=== PATIENT | female | born 1990 | race Caucasian/White ===

== ENCOUNTER 2017-02-20 01:52 | Inpatient (IN) | payer MEDICAID, OTHER ==
[~2017-02-20] VITALS: Ht 165.1 cm; Wt 79.0 kg
[2017-02-20] MEDS ORDERED: Magnesium Hydroxide 10 mL Oral Concentration PO PRN (06:05)
[2017-02-20] MEDS ORDERED: Benzocaine-Menthol Lozenge 2/Pkg PO PRN (06:05)
[2017-02-20] MEDS ORDERED: hydrOXYzine Pamoate 25 mg Capsule PO PRN (06:05)
[2017-02-20] MEDS ORDERED: LORazepam 1 mg Tablet PO PRN (06:05)
[2017-02-20] MEDS ORDERED: Alum-Mag Hydrox-Simeth 30 mL Suspension PO PRN (06:05)
--- NOTE | 2017-02-20 06:37 | NUR ---
ADMIT/NOC OBS Pt arrived to unit via transport. Very agitated and able to state reasoning in clear manner. Was able to redirect. Observed Q15 as ordered. Addendum: 02/20/17 at 0708 by RACHAEL SEYMOUR [facility] Agreed to sign paperwork but requested to call mother to notify of location and to ask her to bring some items and feed pets first. She instead called significant other/ex? and proceeded to yell and cuss at him. Had to be redirected multiple times by staff for both language and volume with staff ending up asking for the call to be ended due to her becoming loud and belligerent with staff. Refused to sign paperwork or have wristband placed due to agitation.
--- NOTE | 2017-02-20 07:07 | NUR ---
Pt is a 26 y/o female admitted from [facility] on an BRIAN for danger to self. Pt arrived on the unit on 534. Per [facility] assessment pt. posted a picture of a bridge on face book with a comment done. Per reports from pts boyfriend she had told him she had researched the bridge and knows what side to jump from. Pts children are currently in the custody of CPS due to pt. threatening suicide in front of them. Pt reports she is on no medications and will not take medication while on the unit. Pt reported to [facility] I dont need meds. The only thing I suffer from is Borderline personality Dis and PTSD. Pt arrived on the unit angry, belligerent and uncooperative and refused to answer admission assessment questions, sign paperwork or allow staff to place a wrist band on.
--- NOTE | 2017-02-20 15:52 | HP ---
[address] [address] HISTORY AND PHYSICAL PATIENT: AUDREY LAMB : 1990 MR#: [id number] ADMIT: 02/20/2017 JOB ID: [id number] IDENTIFYING DATA: The patient is a 26-year-old female with a diagnosis of borderline personality disorder and reportedly PTSD, who is detained on a 72-hour BRIAN from [facility]. CHIEF COMPLAINT: The patient is initially mute and uncooperative with the evaluation, turning away from the treatment team though obviously awake. Later, she is agreeable to speak and states, "My boyfriend is a psychopath." HISTORY OF PRESENT ILLNESS: As noted above, the patient was initially mute, then reported that she had spoken with the nurse and that this was all a large misunderstanding and that this was the fault of her boyfriend. According to [facility] notes, the patient was "uncooperative and argumentative throughout the interview." The patient had reported that her boyfriend had called the police to check on her as she had posted a picture of a bridge in [place] with a message that stated, "I am done." The patient's boyfriend had apparently put a device or an katiuska on her phone which indicated when she was in the [place] area and he had called police when she went into that area. She reported to the [facility] that she had been having thoughts 4-5 days previously but was not having them at the time of the assessment and denies currently. She also reportedly told her boyfriend, "You are going to be a good dad. Have a great life. I am not going to be a part of your life. It's all my fault." Apparently, she has reported suicidal thoughts several times throughout the week and had reported plans to jump off a specific bridge in [place]. According to the patient's boyfriend, she is often threatened to kill herself in front of her three children and that three days ago, the patient's 7-year-old told a Child Protective Services worker, "I am suicidal. I am just like my mom." According to the patient's boyfriend, she stated, "I have lost everything. My kids are gone. The relationship is gone. There is nothing left. I worked so hard for nothing." He reported that she has reported numerous times recently that she is going to "off myself" and "I am going to take care of your problem. I'll be out of your hair." On February 19, 2017, CPS removed the patient's three daughters from their home for a minimum of three months and reportedly they will be staying with the boyfriend's family. Her tox screen was positive for methamphetamines and she stated that she just wanted to "get high." PAST PSYCHIATRIC HISTORY: Inpatient: She has been at [facility] for suicidal ideation. Outpatient: She is followed at [facility] with Mayelin Beltran, for dialectical behavioral therapy. MEDICATIONS: The patient denies taking psychiatric medications. SUICIDE ATTEMPTS: According to [facility] reports, at the age of 15 or 16, 18, 19, 22 with 7-8 attempts "in every way you can think of, pills, gun, everything." SOCIAL HISTORY: The patient had been living with her boyfriend and three children. She has two years of college and was studying biology as a premed course. She reports she has not been working for some time. SUBSTANCE USE HISTORY: She is a one pack per day smoker and endorsed using methamphetamine. She denied all other drug use or alcohol use. She reports having been in an outpatient rehab through [facility] and attends AA and NA meetings. PAST MEDICAL HISTORY: The patient has a history of dental surgery, D and C, hysteroscopy, and laparoscopy. She denies a history of traumatic brain injury or seizure. CURRENT MEDICATIONS: None. ALLERGIES: 1. CIPROFLOXACIN. 2. ONDANSETRON. LABORATORY/EXAM: CMP WNL except for potassium 3.2 and anion gap 23; TSH 1.60; Salicylates and acetaminophen negative; CBC WNL except hemoglobin 15,7 and MCH 31.2. UA WNL except 1+ ketones and occult blood, rare WBC/RBC; Urine Tox Screen negative. Exam unremarkable. MENTAL STATUS EXAMINATION: Appearance: The patient initially would only turn her head away from staff. However, she was later more cooperative. Hair at that time appears to be dyed but otherwise grooming appears appropriate. Behavior: Initially uncooperative, then more cooperative but still quite irritable. Mood is angry about hospitalization. Affect is congruent. Speech: Initially mute, then normal rate and volume with irritable tone. Content of thought: She denies suicidal or homicidal ideation, auditory or visual hallucinations or paranoia. She rates her anxiety as 1/10 and her depression as 0/10. Thought processes: Linked and linear. Insight: Fair. Judgment: Poor. Memory: Grossly intact but not formally tested due to lack of cooperation. Concentration: Appears grossly intact but not formally tested due to lack of cooperation. Intelligence: Appears to be in the average range based upon history and vocabulary. Orientation: She is alert and oriented to February 20, 2017. Sensorium: Overall intact without evidence of delirium or dementia. IMPRESSION: The patient is a 26-year-old female with a reported history of borderline personality disorder and posttraumatic stress disorder who presents with chronic suicidality with a plan to jump off of a bridge in [place]. The patient's boyfriend was concerned enough to contact police, who then contacted the [facility]. The patient was irritable and uncooperative with the [facility] and was subsequently detained due to high risk of self-harm. PROVISIONAL DIAGNOSES: [place] I. Posttraumatic stress disorder by history. [place] II. Borderline personality disorder by history. [place] III. None acute. [place] IV. Children removed from the home by CPS. [place] V. Global Assessment of Functioning 30. PLAN: 1. The patient is admitted to the inpatient unit. Will be provided a safe and secure environment. 2. The patient is currently denying active suicidality and is agreeing to notify staff should she have any acute suicidal or homicidal thoughts. The patient does not therefore require a one to one at this time. 3. The patient is encouraged to participate with group and milieu activities. 4. The patient will be seen by the treatment team on a daily basis to assess symptom side effects, response to treatment. 5. The patient currently reports no psychiatric medications and is declining any at this time. The patient may benefit from an SSRI or prazosin when she is more cooperative. 6. The patient will be provided lorazepam 1 mg every 4 hours as needed for anxiety or agitation. 7. The patient will be provided zolpidem 5 mg nightly as needed for insomnia. 8. The patient will be provided nicotine replacement therapy. 9. Anticipated length of stay is 3-5 days. [facility]
--- NOTE | 2017-02-20 16:32 | NUR ---
Appointment Manager/Counselor S: "I don't have time to be here." O: Patient denied any SI or HI, as well as any auditory or visual hallucinations. She stated she did not have any anxiety or depression. Patient did not make eye contact and either had her head to the side or in her pillow. A: Patient was hostile and cursed a lot. She was not happy about answering questions and vocalized her unhappiness at being here, and away from her children. P: Follow care plan and coordinate with outpatient providers.
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
--- NOTE | 2017-02-20 23:29 | NUR ---
Nurses Note Evening Patient has remained in her room the entire shift without responding to staff interventions. Will maintain q 15 min. checks for safety and support.
--- NOTE | 2017-02-21 05:38 | NUR ---
Nursing note: shift commander/sleep Patient appears to be sleeping on safety checks during the night. Patient awake at 0530 requesting to shower. Continues with irritable affect.
--- NOTE | 2017-02-21 13:43 | PCM.PNPSY ---
Subjective Date of Service Feb 21, 2017 Subjective The patient states today, "I am not suicidal!" Patient had been noted to be earlier angrily yelling on the phone presumably to her boyfriend. Patient reported that she was frustrated that others believe she was suicidal when she is not. She states that she is "borderline and I say I am going to kill myself all the time and never do it." She was informed that others felt that she was more imminent and that is why she was detained. The patient reported that this was "bullshit!" She reported that she needed to go to court on Wednesday for [employer] [address] "community court." She was informed that should be given a note to the courtroom clerk regarding her stay if she were unable to make it. If discharged, the patient reports that she will stay in their home and her boyfriend will be staying with his family. She reports that she will have follow-up with her outpatient therapist. Sleep: 9.75 hours Appetite: Good Suicidal and homicidal ideation: Denies Auditory hallucinations: Denies Visual hallucinations: Denies Other Psychotic Symptoms: N/A Anxiety/Depression: Increased due to concerns about court, CPS being involved with her children. Mental Status Exam Appearance: Neat/well groomed Attitude: Cooperative (marginally), Hostile/Threatening Behavior: Other (irritable and angry) Affect: Labile Mood: Irritable Thought Process/Associations: Logical/Sequential, Goal Directed Speech Production: Normal Speech Rate: Normal Speech Articulation: Other (increased volume) Thought Content: Perseveration Danger to Self/Suicidal Ideati: None Danger to Others: None Consciousness: Alert Orientation: Person, Place, Date, Situation Memory: Grossly Intact Estimate Intellectual Function: Average Basis for IQ estimate: Awareness current events, Word use/vocabulary, Educational history Attention/Concentration & Cogn: Grossly Intact Insight: Good Judgement: Poor Mental Health Plan The patient is a 26-year-old female with a reported history of borderline personality disorder and posttraumatic stress disorder who presents with chronic suicidality with a plan to jump off of a bridge in [place]. The patient' s boyfriend was concerned enough to contact police, who then contacted the [facility]. The patient was irritable and uncooperative with the [facility] and was subsequently detained due to high risk of self-harm. Although the patient acknowledges having borderline personality disorder with chronic suicidal ideation, she denies active suicidal ideation and denies intent or plan to harm self. The patient is future focused on her court however she demonstrates poor impulse control and has a number of significant stressors including court as well as recent CPS involvement with her children. She is therefore inappropriate to be discharged today. As discussed with the patient we will follow up with her providers on Wednesday and further discuss the case. If needed, a letter to the court will be provided. [place] I. Posttraumatic stress disorder by history. [place] II. Borderline personality disorder by history. [place] III. None acute. [place] IV. Children removed from the home by CPS. [place] V. Global Assessment of Functioning 30. Medications Lorazepam 1 mg every 4 hours as needed for anxiety or agitation. Zolpidem 5 mg nightly as needed for insomnia. Treatments 1. The patient is admitted to the inpatient unit and will be provided a safe and secure environment. 2. The patient is currently denying active suicidality and is agreeing to notify staff should she have any acute suicidal or homicidal thoughts. The patient does not therefore require a one to one at this time. 3. The patient is encouraged to participate with group and milieu activities. 4. The patient will be seen by the treatment team on a daily basis to assess symptom side effects, response to treatment. 5. The patient currently reports no psychiatric medications and is declining any at this time. The patient may benefit from an SSRI or prazosin when she is more cooperative. 6. The patient will be provided lorazepam 1 mg every 4 hours as needed for anxiety or agitation. 7. The patient will be provided zolpidem 5 mg nightly as needed for insomnia. 8. The patient will be provided nicotine replacement therapy. 9. Anticipated length of stay is 3-5 days. Himanshu Carroll MD Feb 21, 2017 13:43
--- NOTE | 2017-02-21 17:54 | NUR ---
NURS Note [id number] Mood: "I'm just pissed off." Denies depression and anxiety. Affect: Angry. Behavior: The morning, pt was Thought Content/Process: There is nothing wrong with me. When can I get out of here. Linear, logical. Denies SI, HI. Denies AH, VH. PRN/NURS Note: Pt is not taking any psychiatric medications. Pt sees outside therapist for DBT.
--- NOTE | 2017-02-21 18:49 | NUR ---
Observations [id number] Pt slept much of the morning, attending Community Meeting after prompting from staff- stating that she wanted to know when she was getting "the f*ck out of here." Pt used the phone, yelling and screaming and was asked by staff multiple times to keep her volume down. Pt very angry about being here- pt went to patio, stating "I'm going to act like this until someone lets me out of here." Pt did attend all meals, eating 100%. Pt isolated to room much of the day. She was observed every 15 minutes of shift as directed.
--- NOTE | 2017-02-21 23:50 | NUR ---
Nursing 7p-7a Pt irritable on the phone at the start of the evening. She remained in her room the majority of the shift. She did not participate in unit activities. No scheduled HS medications. Pt noted to be asleep by 2100. Will continue to monitor mood, behavior and sleep cycle through the night. Addendum: 02/22/17 at 0603 by SKINNY PHILLIPS RN Adequate sleep through the night with no noted distress or awakening per protocol checks. Total sleep over 9 hours.
[2017-02-22 08:05] VITALS: BP 114/70; PULSE 91; RESP 17
--- NOTE | 2017-02-22 14:33 | NUR ---
NURS Note [id number] Mood: "I'm just frustrated." Denies depression and anxiety. Affect: Irritated. Thought Process/Content: "Every time I think about suicide Im going to think about how bad you guys are at asking about it." Linear. Blames others for problems. Behavior: Pt attended group this morning. assistant nurse manager who led group reports that patient was rude to peers and disruptive to the group. Out for meals. Pt isolated in room remainder of shift. PRN/NURS Notes: Pt understands that she is discharging tomorrow and will follow up with her therapist at [facility] in [place] for continued treatment. Pt has stated that she hopes to go to inpatient treatment in a dual diagnosis program.
--- NOTE | 2017-02-22 15:42 | PCM.PNPSY ---
Subjective Date of Service Feb 22, 2017 Subjective The patient again reported that she was not suicidal and believes that this was all a mistake. She stated that the bridge that she wanted to go to was one that she frequents in [place] to take photographs. According to court personnel , there was no clearly provocative threats of harm on her social media page. Spoke with nurse Mary Quan and counselor Gisel Beltran and both report chronic history of suicidal thoughts and attempts but the patient appears to be at her baseline. The patient is wanting to follow up with her therapist, Gisel, forward dialectical behavioral therapy. [facility] records have been requested but not received. The patient was informed that a letter was sent to [facility] and confirmed that it had been received indicating that she was hospitalized and unable to make her court date. The patient stated that should she feel suicidal or homicidal she would reach out for help to her therapist, Darren Pierce, or could go to the nearest emergency room. The patient expressed frustration with the emergency room doctor as she feels she has a poor relationship with this individual and that this was part of the reason she was detained. Sleep: 9+ hours "a lot" Appetite: "A lot" Suicidal and homicidal ideation: Denies Auditory hallucinations: Denies Visual hallucinations: Denies Other Psychotic Symptoms: N/A Anxiety: 0/10, "10/10 but just wanting to get out of here." Depression: 0/10 Mental Status Exam Vital Signs Vital Signs Date Time Temp Pulse Resp B/P Pulse Ox O2 Delivery O2 Flow Rate FiO2 02/22/17 08:05 36.3 91 17 114/70 Appearance: Neat/well groomed Attitude: Cooperative, Other (easily angered and feels victimized) Behavior: Other (irritable and angry at times, calm and others) Affect: Labile Mood: Irritable Thought Process/Associations: Logical/Sequential, Goal Directed Speech Production: Normal Speech Rate: Normal Speech Articulation: Normal Thought Content: Perseveration Danger to Self/Suicidal Ideati: None Danger to Others: None Hallucinations: Auditory (Denies), Visual (Denies) Consciousness: Alert Orientation: Person, Place, Date, Situation Memory: Grossly Intact Estimate Intellectual Function: Average Basis for IQ estimate: Awareness current events, Word use/vocabulary, Educational history Attention/Concentration & Cogn: Grossly Intact Insight: Good Judgement: Limited Mental Health Plan The patient is a 26-year-old female with a reported history of borderline personality disorder and posttraumatic stress disorder who presents with chronic suicidality with a plan to jump off of a bridge in [place]. The patient' s boyfriend was concerned enough to contact police, who then contacted the [facility]. The patient was irritable and uncooperative with the [facility] and was subsequently detained due to high risk of self-harm. Although the patient acknowledges having borderline personality disorder with chronic suicidal ideation, she continues to deny active suicidal ideation and denies intent or plan to harm self. The patient is future focused on her court and children however she demonstrates poor impulse control and has a number of significant stressors including court as well as recent CPS involvement with her children. The patient appears to be returning to baseline and will have an appointment with Gisel Beltran on Wednesday at 2 PM at [place]. If the patient continues to have no further outbursts or suicidal thoughts she will be released from her hold tomorrow. [place] I. Posttraumatic stress disorder by history. [place] II. Borderline personality disorder by history. [place] III. None acute. [place] IV. Children removed from the home by CPS. [place] V. Global Assessment of Functioning 30. Medications Lorazepam 1 mg every 4 hours as needed for anxiety or agitation. Zolpidem 5 mg nightly as needed for insomnia. Treatments 1. The patient is admitted to the inpatient unit and will be provided a safe and secure environment. 2. The patient is currently denying active suicidality and is agreeing to notify staff should she have any acute suicidal or homicidal thoughts. The patient does not therefore require a one to one at this time. 3. The patient is encouraged to participate with group and milieu activities. 4. The patient will be seen by the treatment team on a daily basis to assess symptom side effects, response to treatment. 5. The patient currently reports no psychiatric medications and is declining any at this time. The patient may benefit from an SSRI or prazosin when she is more cooperative. 6. The patient will be provided lorazepam 1 mg every 4 hours as needed for anxiety or agitation. 7. The patient will be provided zolpidem 5 mg nightly as needed for insomnia. 8. The patient will be provided nicotine replacement therapy. 9. Anticipated length of stay is 3-5 days. Himanshu Carroll MD Feb 22, 2017 15:42
--- NOTE | 2017-02-22 16:06 | NUR ---
Director Of Community Center/Counselor S: "I'm just ready to get out of here." O: Patient stated that she does not and never did have any SI, and no HI. No auditory or visual hallucinations, and no anxiety or depression. Patient slept for 9+ hours. A: Patient was rude and disruptive during group. She made several statements about being her being a waste of time, and she had better things to do. She calmed down when talking 1:1 with vocational case manager, and will be released on 02/23/2017. Patient was overheard on phone and was loud and disruptive, as well as cursing. P: Follow care plan and coordinate with outpatient provider. Patient has a standing appt every wednesday with her Counselor in [place].
--- NOTE | 2017-02-22 19:05 | NUR ---
Observations [id number] Pt isolative to room much of the day, coming out for meals. Pt also used the phone multiple times, becoming very upset and yelling when talking on the phone. Pt talked with staff about lack of support in her life, concerned about transportation to return home, and upset about where her children will be staying. Pt became very upset in the evening, asking for staff to talk to to "work all this sh*t out." Pt very demanding regarding needs. Pt was informed staff would talk with her after shift change. Pt was observed every 15 minutes of shift as directed.
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
--- NOTE | 2017-02-23 05:59 | NUR ---
Sleep Prn Ambien effective. Pt has remained asleep since 2314 with no noted distress or awakening per protocol checks. Total sleep over 7 hours.
--- NOTE | 2017-02-23 10:13 | PCM.DIMED ---
Discharge Instructions Date of Service Feb 23, 2017 Dates of Hospitalization Feb 20, 2017 at 05:29 Discharge Diagnosis Discharge Diagnosis [place] I. Posttraumatic stress disorder by history. [place] II. Borderline personality disorder by history. [place] III. None acute. [place] IV. Children removed from the home by CPS, relationship stress. [place] V. Global Assessment of Functioning 50. Diet Discharge Diet: No restrictions Activity Discharge Activity: No restrictions Patient Instructions Patient Instructions Should you have any thoughts of harming yourself or others, please call the crisis line, your provider, 911, or go to the nearest Emergency Department. You are being discharged on no routine medication. Follow-up plan Provider Gisel Beltran 2pm on 02/23/17 TOSHA Sosa Brian E MD Feb 23, 2017 10:13
--- NOTE | 2017-02-23 11:35 | NUR ---
NURS DISCHARGE NOTE Patient cooperative with discharge process. Acknowledges understanding of d/c instructions and has a copy with them upon leaving unit at 1130. Belongings accounted for and with patient. Prescriptions faxed to patients pharmacy. Patient denies harmful thoughts and hallucinations at this time. NOTE: Asked Dr. Carroll about finalizing discharge instructions. Dr. Carroll stated that it was okay to print discharge instructions without his electronic finalization. Printed and had patient sign discharge paperwork prior to finalization. Notified Zuleika Su.
--- NOTE | 2017-02-23 15:14 | NUR ---
Fabrication Inspector/Counselor S: "My mom's a B, but my best friend will pick me up. He's the only one I have." O: Patient denies any SI or HI, no depression or anxiety. No auditory or visual hallucinations. Slept for 7+ hours. A: Patient was pleasant and cooperative. She discharged at 11am, and was picked up by a friend. She is returning to her home in [place], and has a list of discharge instructions, safety plan, 's appts. etc. Patient has been in contact with her counselor, and has an appt. tomorrow, 02/24/2017. P: Follow discharge instructions.
--- NOTE | 2017-02-23 16:47 | PCM.DC.MED ---
Discharge Summary Date of Service Feb 23, 2017 Dates of Hospitalization Date of Hospital Admission Feb 20, 2017 at 05:29 Date of Discharge: Feb 23, 2017 Providers: Admitting Physician: Francois Gomez MD Primary Care Physician: Other,Physician Attending Physician: Francois Gomez MD Diagnosis at Time of Discharge Diagnosis at Time of Discharge [place] I. Posttraumatic stress disorder by history. [place] II. Borderline personality disorder by history. [place] III. None acute. [place] IV. Children removed from the home by CPS, relationship stress. [place] V. Global Assessment of Functioning 50. Brief History IDENTIFYING DATA: The patient is a 26-year-old female with a diagnosis of borderline personality disorder and reportedly PTSD, who is detained on a 72-hour BRIAN from [facility]. CHIEF COMPLAINT: The patient is initially mute and uncooperative with the evaluation, turning away from the treatment team though obviously awake. Later, she is agreeable to speak and states, "My boyfriend is a psychopath." HISTORY OF PRESENT ILLNESS: As noted above, the patient was initially mute, then reported that she had spoken with the nurse and that this was all a large misunderstanding and that this was the fault of her boyfriend. According to [facility] notes, the patient was "uncooperative and argumentative throughout the interview." The patient had reported that her boyfriend had called the police to check on her as she had posted a picture of a bridge in [place] with a message that stated, "I am done." The patient's boyfriend had apparently put a device or an katiuska on her phone which indicated when she was in the [place] area and he had called police when she went into that area. She reported to the [facility] that she had been having thoughts 4-5 days previously but was not having them at the time of the assessment and denies currently. She also reportedly told her boyfriend, "You are going to be a good dad. Have a great life. I am not going to be a part of your life. It's all my fault." Apparently, she has reported suicidal thoughts several times throughout the week and had reported plans to jump off a specific bridge in [place]. According to the patient's boyfriend, she is often threatened to kill herself in front of her three children and that three days ago, the patient's 7-year-old told a Child Protective Services worker, "I am suicidal. I am just like my mom." According to the patient's boyfriend, she stated, "I have lost everything. My kids are gone. The relationship is gone. There is nothing left. I worked so hard for nothing." He reported that she has reported numerous times recently that she is going to "off myself" and "I am going to take care of your problem. I'll be out of your hair." On February 19, 2017, CPS removed the patient's three daughters from their home for a minimum of three months and reportedly they will be staying with the boyfriend's family. Her tox screen was positive for methamphetamines and she stated that she just wanted to "get high." PAST PSYCHIATRIC HISTORY: Inpatient: She has been at [facility] for suicidal ideation. Outpatient: She is followed at [facility] with Mayelin Beltran, for dialectical behavioral therapy. Medications: None. Hospital Course The patient consistently reported that she was not suicidal and believed that this was a big misunderstanding. The patient endorsed chronic suicidal ideation and multiple attempts due to stressful situations. We discussed the use of SSRIs or prazosin and the patient declined at this time. During her stay she consistently denied having suicidal ideation. She stated that the bridge that she wanted to go to was one that she frequents in [place] to take photographs. According to court personnel who reviewed her social media page, there were no clearly provocative threats of harm on her social media page. Further information was obtained after speaking with nurse Mary Quan and counselor Gisel Beltran who both reported a chronic history of suicidal thoughts and attempts but the patient appeared to be at her baseline. The patient was wanting to follow up with her therapist, Gisel, forward dialectical behavioral therapy. [facility] records have been requested but were not received by the time of discharge. The patient was informed that a letter was sent to [facility] and confirmed that it had been received indicating that she was hospitalized and unable to make her court date. The patient stated that should she feel suicidal or homicidal she would reach out for help to her therapist, Darren Pierce, or could go to the nearest emergency room. The patient expressed frustration with the emergency room doctor as she feels she has a poor relationship with this individual and that this was part of the reason she was detained. The patient declined psychotropic medications and was discharged on no routine medications. She did use 1 dose each of lorazepam, hydroxyzine, and zolpidem. The patient reported that she was going to be picked up by a friend, go to [facility] and coal picker a pair of pants, socks, and a pack of cigarettes and then return home. At the time of discharge, the patient was reporting her mood as "all right." Sleep was reported as "good," 7+ hours per staff. Appetite was reported as "fine." Her anxiety was reported as 0/10 and depression as 0/10. She denied auditory or visual hallucinations and any thought, intent or plan of hurting herself or others. Exam Vital Signs (Last) Date Time Temp Pulse Resp B/P Pulse Ox O2 Delivery O2 Flow Rate FiO2 02/22/17 08:05 36.3 91 17 114/70 Exam Discharge Mental Status Exam Appearance: Neat/well groomed Attitude: Cooperative, generally pleasant Behavior: Good eye contact, no psychomotor agitation or retardation Affect: Irritable about situation Mood: Generally euthymic Thought Process/Associations: Logical/Sequential, Goal Directed Speech Production: Normal Speech Rate: Normal Speech Articulation: Normal Thought Content: Perseveration Danger to Self/Suicidal Ideation: None Danger to Others: None Hallucinations: Auditory (Denies), Visual (Denies) Consciousness: Alert Orientation: Person, Place, Date, Situation Memory: Grossly Intact Estimate Intellectual Function: Average Basis for IQ estimate: Awareness current events, Word use/vocabulary, Educational history Attention/Concentration & Cognition: Grossly Intact Insight: Good Judgment: Fair Discharge Medications No Active Prescriptions or Reported Meds Followup Plan Disposition: The patient is denying suicidal or homicidal ideation, is requesting discharge, and is on no routine psychotropic medication. There is no indication for further hospitalization and the patient is released from her hold. The patient was prescribed no routine psychotropic medications. Follow-up plan Provider Gisel Beltran 2pm on 02/23/17 TOSHA Sosa Discharge Diet: No restrictions Discharge Activity: No restrictions Patient Instructions Should you have any thoughts of harming yourself or others, please call the crisis line, your provider, 911, or go to the nearest Emergency Department. You are being discharged on no routine medication. Himanshu Carroll MD Feb 23, 2017 16:47
== END 2017-02-23 11:30 | disposition home or self-care (01) | DRG 882 ==
LOC: MHC 05:29
PROVIDERS: ADMIT Psychiatry & Neurology Psychiatry; ATTEND Psychiatry & Neurology Psychiatry
DX: F43.10 Post-traumatic stress disorder, unspecified (principal); R45.851 Suicidal ideations; F60.3 Borderline personality disorder